=== PATIENT | female | born 1955 | race Caucasian/White ===

== ENCOUNTER 2022-08-27 20:11 | Emergency (ER) | payer MEDICAID ==
--- NOTE | 2022-08-27 20:40 | NUR ---
LEFT WITHOUT TRIAGE PER ADMITING
[2022-08-27 20:44] VITALS: BP 149/78
[2022-08-28] MEDS ORDERED: LOPE-289 PO (13:18)
[2022-08-28] MEDS ORDERED: IBUP-2213 PO (13:18)
[2022-08-28] MEDS ORDERED: ONDA8TAB87 PO (13:18)
[2022-08-28] MEDS ORDERED: CIPR500T4 PO (13:18)
== END 2022-08-27 20:40 | disposition left against medical advice (07) ==
LOC: MED 20:11
DX: R20.0 Anesthesia of skin (principal); Z53.21 Procedure and treatment not carried out due to patient leaving prior to being seen by health care provider

== ENCOUNTER 2022-08-28 10:36 | Emergency (ER) | payer MEDICAID ==
[~2022-08-28] VITALS: Ht 154.9 cm; Wt 81.6 kg
[2022-08-28 10:43] VITALS: BP 126/80
[2022-08-28 11:46] LABS: APPEARANCE,URINE CLEAR (CLEAR); BILIRUBIN,URINE NEGATIVE (NEGATIVE); BLOOD, URINE TRACE-I (NEGATIVE); COLOR,URINE YELLOW (YELLOW); LEUKOCYTE ESTERASE ,URINE NEGATIVE (NEGATIVE); NITRITE, URINE NEGATIVE (NEGATIVE); UGLUCOSE NEGATIVE (NEGATIVE)
[2022-08-28 12:02] LABS: RBC,URINE 0-5 /HPF (0-5); WBC,URINE 0-5 /HPF (0-5)
[2022-08-28 12:15] LABS: BASOPHILS % (AUTO) 0.7 % (0.0-2.0); EOSINOPHILS # (AUTO) 0.1 K/uL (0-0.4); EOSINOPHILS % (AUTO) 1.7 % (0.0-4.0); HEMATOCRIT 39.5 % (36-48); HEMOGLOBIN 13.1 g/dL (12.0-16.0); LYMPHOCYTES # (AUTO) 1.8 K/uL (2.5-16.5); LYMPHOCYTES % (AUTO) 39.7 % (20.5-51.1); MEAN CORPUSCULAR HEMOGLOBIN 29 pg (27-31); MEAN CORPUSCULAR HGB CONC 33 g/dL (33-37); MEAN CORPUSCULAR VOLUME 88.5 fL (80-94); MONOCYTES # (AUTO) 0.5 K/uL (0.8-1.0); MONOCYTES % (AUTO) 10.1 % (1.7-9.3); NEUTROPHILS # (AUTO) 2.2 K/uL (1.8-7.7); NEUTROPHILS % (AUTO) 47.8 % (42.2-75.2); PLATELET COUNT (AUTO) 242 K/uL (140-450); RED BLOOD CELL COUNT(AUTO) 4.46 MIL/uL (4.20-5.40); RED CELL DISTRIBUTION WIDTH 13.6 % (11.6-13.7); WHITE BLOOD COUNT (AUTO) 4.6 K/uL (4.8-10.8)
[2022-08-28 12:46] LABS: ALBUMIN 3.9 g/dL (3.4-5.0); ANION GAP 11.5 (8-16); CARBON DIOXIDE 25.7 mmol/L (21-32); CREATININE 0.9 mg/dL (0.6-1.3); POTASSIUM 4.2 mmol/L (3.5-5.1); TOTAL BILIRUBIN 0.6 mg/dL (0.0-1.0)
--- NOTE | 2022-08-28 12:57 | NUR ---
PT AMB TO BED 8.
[2022-08-28] MEDS ORDERED: ONDA8TAB87 PO (13:18)
[2022-08-28] MEDS ORDERED: CIPR500T4 PO (13:18)
[2022-08-28] MEDS ORDERED: LOPE-289 PO (13:18)
[2022-08-28] MEDS ORDERED: IBUP-2213 PO (13:18)
[2022-08-28 13:29] VITALS: BP 128/67
--- NOTE | 2022-08-28 13:29 | NUR ---
Patient discharged with v/s stable. Written and verbal after care instructions given and explained. Patient alert, oriented and verbalized understanding of instructions. Ambulatory with steady gait. All questions addressed prior to discharge. ID band removed. Patient advised to follow up with PMD. Rx of CIPRO, IMODIUM, ZOFRAN, IBUPROFEN given. Patient educated on indication of medication including possible reaction and side effects. Opportunity to ask questions provided and answered.
== END 2022-08-28 13:29 | disposition home or self-care (01) ==
LOC: MED 10:36
DX: R11.2 Nausea with vomiting, unspecified (principal); R19.7 Diarrhea, unspecified; R10.13 Epigastric pain; E11.9 Type 2 diabetes mellitus without complications; Z86.39 Personal history of other endocrine, nutritional and metabolic disease
CPT/HCPCS: 36415; 80053; 81001; 82948; 83690; 85025; 99283

== ENCOUNTER 2024-05-02 15:59 | Emergency (ER) | payer MEDICAID ==
[~2024-05-02] VITALS: Ht 154.9 cm; Wt 81.6 kg
[~2024-05-02 15:59] MED LIST: CIPR500T4 PO; IBUP-2213 PO; LOPE-289 PO; ONDA8TAB87 PO
[2024-05-02 16:10] VITALS: BP 116/39; PULSE 71; RESP 16; TEMP 98.4; O2SAT 97
[2024-05-02] MEDS: IBUPROFEN 600 MG TAB PO ONE (17:27)
[2024-05-02] MEDS ORDERED: HYDR28CR67 TP (18:07)
[2024-05-02] MEDS ORDERED: DIPH25TA53 PO (18:07)
[2024-05-02 18:30] VITALS: BP 115/39; PULSE 65; RESP 16; TEMP 98.4; O2SAT 98
== END 2024-05-02 18:30 | disposition home or self-care (01) ==
LOC: MED 15:59
DX: S90.31XA Contusion of right foot, initial encounter (principal); T63.441A Toxic effect of venom of bees, accidental (unintentional), initial encounter; L25.9 Unspecified contact dermatitis, unspecified cause; E11.9 Type 2 diabetes mellitus without complications; I10 Essential (primary) hypertension; E03.9 Hypothyroidism, unspecified; E78.5 Hyperlipidemia, unspecified; Z79.899 Other long term (current) drug therapy; W18.39XA Other fall on same level, initial encounter; Y92.89 Other specified places as the place of occurrence of the external cause; Y93.89 Activity, other specified; Y99.8 Other external cause status
CPT/HCPCS: 73630; 99283; Q0163